=== PATIENT | female | born 1995 | race Caucasian/White ===

== ENCOUNTER 2017-07-06 20:46 | Emergency (ER) | payer OTHER ==
[~2017-07-06] VITALS: Ht 160 cm; Wt 82.3 kg
[~2017-07-06 20:46] MED LIST: BCPILLS PO
[2017-07-06 20:48] VITALS: TEMP 36.8; Ht 160 cm; Wt 82.3 kg
[2017-07-06 20:57] VITALS: O2SAT 99
[2017-07-06 21:24] LABS: ISTAT CREATININE 0.8 mg/dl (0.6-1.3); ISTAT HEMOGLOBIN 14.3 g/dl (12.0-16.0); ISTAT IONIZED CALCIUM 1.18 mmol/l (1.12-1.32)
--- NOTE | 2017-07-06 21:27 | DIAGNOSTIC IMAGING REPORT ---
CHEST ONE VIEW PORTABLE CLINICAL HISTORY: Chest pain. COMPARISON STUDY: Chest radiograph June 24, 2015. FINDINGS: Lung volumes are normal. Lungs are clear. No pneumothorax or pleural effusion is present. Pulmonary vascularity is normal. Cardiomediastinal silhouette is normal. IMPRESSION: No acute cardiopulmonary findings. Electronically signed by: Brenden Solis M.D. 07/06/2017 9:26 PM Dictated Date/Time: 07/06/2017 9:25 PM
[2017-07-06 21:39] LABS: BASO % 0.5 %; BASO ABS # 0.04 K/uL (0-0.2); COMPLETE YES; EOS % 2.5 %; HEMATOCRIT 39.7 % (37-47); IG% 0.2 %; LYMPH ABS # 4.11 K/uL (1.2-3.4); MEAN CELL VOLUME 84.1 fL (80-100); MEAN CORPUSCULAR HEMOGLOBIN 28.8 pg (25-34); MEAN CORPUSCULAR HGB CONC 34.3 g/dl (32-36); MEAN PLATELET VOLUME 10.3 fL (7.4-10.4); MONO % 8.6 %; NEUT % 41.2 %; PLATELET COUNT 335 K/uL (130-400); RED BLOOD COUNT 4.72 M/uL (4.2-5.4); WHITE BLOOD COUNT 8.75 K/uL (4.8-10.8)
[2017-07-06 21:57] LABS: ALT/SGPT 18 U/L (12-78); BLOOD UREA NITROGEN 10 mg/dl (7-18); BUN/CREATININE RATIO 10.8 (10-20); CALCIUM 9.6 mg/dl (8.5-10.1); CARBON DIOXIDE 27 mmol/L (21-32); CHLORIDE 104 mmol/L (98-107); CREATININE 0.97 mg/dl (0.60-1.20); GLUCOSE 91 mg/dl (70-99); POTASSIUM 3.7 mmol/L (3.5-5.1); SODIUM 141 mmol/L (136-145)
--- NOTE | 2017-07-06 21:58 | EMERGENCY ROOM VISIT NOTE ---
History Report prepared by Isacc: Isaac Suarez Under the Supervision of: Dr. Javid Caro M.D. First contact with patient: 20:51 Chief Complaint: TACHYCARDIA Stated Complaint: CHEST PAIN, HIGH HEART RATE AT REST History of Present Illness The patient is a 21 year old female who presents to the Emergency Room with complaints of constant tachycardia starting yesterday. The patient notes that she additionally is having some intermittent chest and abdominal pain which is not worsened with deep inspiration. The patient denies any recent long trips. She notes that she takes control, and she does not think there is a chance of . Her last period was last month. The patient states that she had four beers two days ago. She took ibuprofen this morning for back pain. She notes that her symptoms improve after taking a deep breath, and then her heart speeds up again. Source of History: patient Onset: yesterday Position: other (global) Quality: other (tachycardia) Timing: constant Modifying Factors (Relieving): other (Deep inspiration) Associated Symptoms: + chest pain, + abdominal pain Review of Systems See HPI for pertinent positives & negatives. A total of 10 systems reviewed and were otherwise negative. Past Medical & Surgical Medical Problems: (1) No pertinent past medical history Family History Cancer Gallbladder disease Heart disease Hypertension Social History Smoking Status: Never Smoker Alcohol Use: occasionally Drug Use: none Marital Status: in relationship Occupation Status: employed Current/Historical Medications Scheduled Control Pills ( Control Pills), 1 TAB PO DAILY Allergies Coded Allergies: No Known Allergies (Unverified , 06/24/15) Physical Exam Vital Signs Date Time Temp Pulse Resp B/P (MAP) Pulse Ox O2 Delivery O2 Flow Rate FiO2 07/06/17 22:52 96 18 105/73 98 07/06/17 21:59 87 18 127/78 99 Room Air 07/06/17 21:20 97 07/06/17 21:12 99 Room Air 07/06/17 20:57 99 Room Air 07/06/17 20:48 36.8 135 18 137/98 97 Room Air Physical Exam GENERAL: Patient is a healthy-appearing well-nourished female HEAD: Normocephalic atraumatic EYES: Ocular movements intact pupils equal and react to light OROPHARYNX mucous membranes are moist no exudates present no erythema or edema present NECK: Supple no nuchal rigidity CHEST: Good equal expansion LUNGS: Clear and equal to auscultation CARDIAC: Normal S1 and S2 ABDOMEN: Soft nontender no guarding BACK: No CVA tenderness EXTREMITIES: No pain upon palpation normal muscle strength in all groups no clubbing cyanosis or edema NEURO: Patient is following commands and answering questions appropriately. Alert and oriented x3 Cranial Nerves 2-12 grossly intact Medical Decision & Procedures ER Provider Diagnostic Interpretation: Radiology results as stated below per my review and radiologist interpretation: CHEST ONE VIEW PORTABLE CLINICAL HISTORY: Chest pain. COMPARISON STUDY: Chest radiograph June 24, 2015. FINDINGS: Lung volumes are normal. Lungs are clear. No pneumothorax or pleural effusion is present. Pulmonary vascularity is normal. Cardiomediastinal silhouette is normal. IMPRESSION: No acute cardiopulmonary findings. Electronically signed by: Brenden Solis M.D. 07/06/2017 9:26 PM Dictated Date/Time: 07/06/2017 9:25 PM Laboratory Results 07/06/17 21:05 Red Blood Count 4.72, Mean Corpuscular Volume 84.1, Mean Corpuscular Hemoglobin 28.8, Mean Corpuscular Hemoglobin Concent 34.3, Mean Platelet Volume 10.3, Neutrophils (%) (Auto) 41.2, Lymphocytes (%) (Auto) 47.0, Monocytes (%) (Auto) 8.6, Eosinophils (%) (Auto) 2.5, Basophils (%) (Auto) 0.5, Neutrophils # (Auto) 3.61, Lymphocytes # (Auto) 4.11, Monocytes # (Auto) 0.75, Eosinophils # (Auto) 0.22, Basophils # (Auto) 0.04 07/06/17 21:05 Test 07/06/17 21:05 07/06/17 21:07 07/06/17 21:09 White Blood Count 8.75 K/uL (4.8-10.8) Red Blood Count 4.72 M/uL (4.2-5.4) Hemoglobin 13.6 g/dL (12.0-16.0) Hematocrit 39.7 % (37-47) Mean Corpuscular Volume 84.1 fL (80-100) Mean Corpuscular Hemoglobin 28.8 pg (25-34) Mean Corpuscular Hemoglobin Concent 34.3 g/dl (32-36) Platelet Count 335 K/uL (130-400) Mean Platelet Volume 10.3 fL (7.4-10.4) Neutrophils (%) (Auto) 41.2 % Lymphocytes (%) (Auto) 47.0 % Monocytes (%) (Auto) 8.6 % Eosinophils (%) (Auto) 2.5 % Basophils (%) (Auto) 0.5 % Neutrophils # (Auto) 3.61 K/uL (1.4-6.5) Lymphocytes # (Auto) 4.11 K/uL (1.2-3.4) Monocytes # (Auto) 0.75 K/uL (0.11-0.59) Eosinophils # (Auto) 0.22 K/uL (0-0.5) Basophils # (Auto) 0.04 K/uL (0-0.2) RDW Standard Deviation 38.3 fL (36.4-46.3) RDW Coefficient of Variation 12.6 % (11.5-14.5) Immature Granulocyte % (Auto) 0.2 % Immature Granulocyte # (Auto) 0.02 K/uL (0.00-0.02) Est Creatinine Clear Calc Drug Dose 91.6 ml/min Estimated GFR () 95.4 Estimated GFR (Non- 82.3 BUN/Creatinine Ratio 10.8 (10-20) Calcium Level 9.6 mg/dl (8.5-10.1) Total Bilirubin 0.4 mg/dl (0.2-1) Direct Bilirubin < 0.1 mg/dl (0-0.2) Aspartate Amino Transf (AST/SGOT) 12 U/L (15-37) Alanine Aminotransferase (ALT/SGPT) 18 U/L (12-78) Alkaline Phosphatase 68 U/L (45-117) Total Creatine Kinase 89 U/L (26-192) Creatine Kinase MB 0.5 ng/ml (0.5-3.6) Creatine Kinase MB Ratio 0.6 (0-3.0) Troponin I < 0.015 ng/ml (0-0.045) Total Protein 7.6 gm/dl (6.4-8.2) Albumin 3.8 gm/dl (3.4-5.0) Lipase 204 U/L (73-393) Bedside D-Dimer 234 ng/mlFEU (0-450) Bedside Hemoglobin 14.3 g/dl (12.0-16.0) Bedside Hematocrit 42 % (37-47) Bedside Sodium 141 mEq/L (135-144) Bedside Potassium 3.8 mEq/L (3.3-5.0) Bedside Chloride 103 mEq/L (101-112) Bedside Total CO2 26 mEq/l (24-31) Anion Gap 17.0 mmol/L (16-25) Bedside Blood Urea Nitrogen 11 mg/dl (7-18) Bedside Creatinine 0.8 mg/dl (0.6-1.3) Bedside Glucose (other) 94 mg/dl (70-99) Bedside Ionized Calcium ([facility]) 1.18 mmol/l (1.12-1.32) Labs reviewed by ED physician. ECG Indication: chest pain, tachycardia Rate (beats per minute): 94 Rhythm: normal sinus Findings: no acute ischemic change, no ectopy ED Course 2050: Past medical records reviewed. The patient was evaluated in room C3. A complete history and physical examination was performed. 2237: Upon reexamination the patient is doing well. I discussed results and treatment plan with the patient. She verbalizes agreement and understanding. The patient is ready for discharge. Medical Decision Differential diagnosis: Etiologies such as cardiac ischemia, aortic dissection, pulmonary embolism, pneumonia, pneumothorax, musculoskeletal, infections, pericarditis, myocarditis , esophageal rupture, gastrointestinal, as well as others were entertained. This is a 21-year-old female who presents emergency department complaining of rapid heart rate. Upon arrival to emergency department the patient's heart rate is only 100. She was given by mouth fluids in the emergency department due to a shortage of IV fluid. She has a normal CBC normal renal profile normal d-dimer normal cardiac enzymes and a normal EKG. Based on these findings I felt that the patient was safe enough to be discharged home. I strongly encouraged the patient to increase her fluid intake over the next 48 hours. Patient was in agreement with the treatment plan. Impression Primary Impression: Tachycardia Scribe Attestation The scribe's documentation has been prepared under my direction and personally reviewed by me in its entirety. I confirm that the note above accurately reflects all work, treatment, procedures, and medical decision making performed by me. Departure Information Dispostion Home / Self-Care Referrals No Doctor, Assigned (PCP) Forms HOME CARE DOCUMENTATION FORM, IMPORTANT VISIT INFORMATION, WORK / SCHOOL INSTRUCTIONS Patient Instructions ED Palpitations, [facility] Additional Instructions Increase fluids next 48 hours Follow up with [address] Watkins You have been examined and treated today on an emergency basis only. This is not a substitute for, or an effort to provide, complete comprehensive medical care. It is impossible to recognize and treat all injuries or illnesses in a single emergency department visit. It is therefore important that you follow up closely with Dr Watkins. Call as soon as possible for an appointment. Thank you for your time and consideration. I look forward to speaking with you again soon. Please don't hesitate to call us if you have any questions.
[2017-07-06 22:02] LABS: ALKALINE PHOSPHATASE 68 U/L (45-117); AST/SGOT 12 U/L (15-37); CKMB/CK RATIO 0.6 (0-3.0)
[2017-07-06 22:52] VITALS: BP 105/73; PULSE 96; O2SAT 98
== END 2017-07-06 23:02 | disposition home or self-care (01) ==
LOC: C.EDB 20:47 → C.EDC 23:02
DX: R00.0 Tachycardia, unspecified (principal); Z80.9 Family history of malignant neoplasm, unspecified; Z83.79 Family history of other diseases of the digestive system; Z82.49 Family history of ischemic heart disease and other diseases of the circulatory system